=== PATIENT | male | born 1990 | race Caucasian/White ===

== ENCOUNTER → 2017-03-10 | Outpatient (CLI) | payer OTHER ==
--- NOTE | 2017-03-10 12:09 | XR ---
EXAMINATION TYPE: XR hand complete bilateral DATE OF EXAM: 03/10/2017 CLINICAL HISTORY: pain TECHNIQUE: Frontal, lateral and oblique images of the left hand are obtained. COMPARISON: None. FINDINGS: There is no acute fracture/dislocation evident. The joint spaces appear within normal limi ts. The overlying soft tissue appears unremarkable. IMPRESSION: There is no acute fracture or dislocation. ICD 10 NO FRACTURE, INITIAL EVALUATION EXAMINATION TYPE: XR hand complete bilateral DATE OF EXAM: 03/10/2017 CLINICAL HISTORY: pain TECHNIQUE: Frontal, lateral and oblique images of the right hand are obtained. COMPARISON: None. FINDINGS: There is no acute fracture/dislocation evident. The joint spaces appear within normal limi ts. The overlying soft tissue appears unremarkable. IMPRESSION: There is no acute fracture or dislocation ICD 10 NO FRACTURE, INITIAL EVALUATION
--- NOTE | 2017-03-10 12:10 | XR ---
EXAMINATION TYPE: XR wrist complete BILATERAL DATE OF EXAM: 03/10/2017 CLINICAL HISTORY: pain TECHNIQUE: Frontal, lateral and oblique images of the right wrist are obtained. COMPARISON: None. FINDINGS: There is no acute fracture/dislocation evident. The joint spaces appear within normal limits. The o verlying soft tissue appears unremarkable. IMPRESSION: There is no acute fracture or dislocation seen. ICD 10 NO FRACTURE, INITIAL EVALUATION EXAMINATION TYPE: XR wrist complete BILATERAL DATE OF EXAM: 03/10/2017 CLINICAL HISTORY: pain TECHNIQUE: Frontal, lateral and oblique images of the left wrist are obtained. COMPARISON: None. FINDINGS: There is no acute fracture/dislocation evident. The joint spaces appear within normal solis its. The overlying soft tissue appears unremarkable.
== END | disposition home or self-care (01) ==
LOC: RADXRMAIN 11:42
PROVIDERS: ATTEND Emergency Medicine
DX: S60.12 Contusion of index finger with damage to nail (principal); M65.839 Other synovitis and tenosynovitis, unspecified forearm

== ENCOUNTER 2018-03-31 14:36 | Inpatient (IN) | payer BC, MEDICAID ==
--- NOTE | 2018-03-31 14:43 | ED ---
Psych HPI - General Stated Complaint: Mental Health Time Seen by Provider: 03/31/18 14:40 Source: patient, EMS, RN notes reviewed Mode of arrival: EMS Limitations: no limitations - History of Present Illness Initial Comments: This is a 27-year-old male presents emergency from via EMS from [facility] for psychiatric evaluation. Patient went to [facility] today because he's been having worsening hallucinations. Patient states he has artery hallucinations and states that the voices are See Random Things. He Is Not Suicidal or Homicidal. He Does Have a History of Schizophrenia Non-Any Current Medications. He States He Uses Marijuana A Few Times in the past Nothing Recent No Other Illicit Drug Use. Denies Alcohol Abuse. - Related Data Home Medications Medication Instructions Recorded Confirmed Acetaminophen Tab [Tylenol Tab] 1,000 mg PO Q6HR PRN 03/31/18 03/31/18 Allergies Allergy/AdvReac Type Severity Reaction Status Date / Time No Known Allergies Allergy Verified 03/31/18 15:08 Review of Systems ROS Statement: Those systems with pertinent positive or pertinent negative responses have been documented in the HPI. ROS Other: All systems not noted in ROS Statement are negative. General Exam General appearance: alert, in no apparent distress Head exam: Present: atraumatic, normocephalic, normal inspection Eye exam: Present: normal appearance, PERRL, EOMI. Absent: scleral icterus, conjunctival injection, periorbital swelling ENT exam: Present: normal exam, mucous membranes moist Neck exam: Present: normal inspection, full ROM. Absent: tenderness, meningismus, lymphadenopathy Respiratory exam: Present: normal lung sounds bilaterally. Absent: respiratory distress, wheezes, rales, rhonchi, stridor Cardiovascular Exam: Present: regular rate, normal rhythm, normal heart sounds. Absent: systolic murmur, diastolic murmur, rubs, gallop, clicks GI/Abdominal exam: Present: soft, normal bowel sounds. Absent: distended, tenderness, guarding, rebound, rigid Skin exam: Present: warm, dry, intact, normal color. Absent: rash Course Vital Signs 03/31/18 14:42 Temperature 98.0 F Pulse Rate 72 Respiratory 20 Rate Blood Pressure 135/63 O2 Sat by Pulse 97 Oximetry Disposition Clinical Impression: Schizophrenia Disposition: ADMITTED IP TO THIS HOSP Condition: Stable Referrals: None,Stated [Primary Care Provider] - 1-2 days
[2018-03-31 16:59] LABS: Amphetamine Screen,Urine Not Detected (NotDetected); Barbiturate Screen,Urine Not Detected (NotDetected); Benzodiazepines Screen,Urine Not Detected (NotDetected); Cocaine Screen,Urine Not Detected (NotDetected); Methadone Screen, Urine Not Detected (NotDetected); Opiate Screen,Urine Not Detected (NotDetected); Oxycodone Screen, Urine Not Detected (NotDetected); Phencyclidine Screen,Urine Not Detected (NotDetected); Tricyclic Antidepressant,Urine Not Detected (NotDetected); Urn Cannabinoid Scrn Not Detected (NotDetected)
[2018-03-31] MEDS ORDERED: MAG HYDROX/AL HYDROX/SIMETH 30 ML CUP PO PRN (17:40)
[2018-03-31] MEDS ORDERED: MAGNESIUM HYDROXIDE 2,400 MG/10 ML CUP PO PRN (17:40)
[2018-03-31] MEDS ORDERED: ZIPRASIDONE 20 MG VIAL IM PRN (17:40)
[2018-03-31] MEDS ORDERED: ACETAMINOPHEN TAB 325 MG TAB PO PRN (17:40)
[2018-03-31 18:32] VITALS: BMI 20.5
--- NOTE | 2018-03-31 22:30 | P.MDCNMH ---
History of Present Illness H&P Date: 03/31/18 Chief Complaint: Medical management 27-year-old male with history of schizophrenia no other past medical history. Presented to the hospital due to suicidal ideation from [facility]. Medicine was consulted for medical management. I interviewed the patient he denies any medical complaints at this point. He denies any chest pain or trouble breathing denies any headaches dizziness lightheadedness, denies any nausea or vomiting denies any changes in his hearing or vision denies any abdominal pain he denies any changes in his bowel habits or urinary habits he denies any focal neurologic deficits she denies any GI bleeding he denies any coughing or shortness of breath. Review of Systems Pertinent positives as noted in HPI. All other systems were reviewed and are negative Past Medical History Past Medical History: No Reported History History of Any Multi-Drug Resistant Organisms: None Reported Past Surgical History: No Surgical Hx Reported Past Psychological History: Depression, Schizophrenia Smoking Status: Former smoker Past Alcohol Use History: Occasional Past Drug Use History: None Reported - Past Family History Family Additional Family Medical History / Comment(s): Hypertension runs in his mother' s side of the family. His mother with breast cancer Medications and Allergies Home Medications Medication Instructions Recorded Confirmed Type Acetaminophen Tab [Tylenol Tab] 1,000 mg PO Q6HR PRN 03/31/18 03/31/18 History Allergies Allergy/AdvReac Type Severity Reaction Status Date / Time No Known Allergies Allergy Verified 03/31/18 15:08 Physical Exam Vitals: Vital Signs Temp Pulse Pulse Resp BP BP Pulse Ox 03/31/18 18:18 98.6 F 03/31/18 18:06 98.6 F 75 16 120/76 03/31/18 17:20 98.6 F 73 18 123/56 99 03/31/18 14:42 98.0 F 72 20 135/63 97 Intake and Output 03/31/18 03/31/18 03/31/18 06:59 14:59 22:59 Other: Weight 61.235 kg 61.4 kg Constitutional: No acute distress, conversant, pleasant Eyes: Anicteric sclerae, moist conjunctiva, no lid-lag Pupils equal round reactive to light ENMT: NC/AT Oropharynx clear, no erythema, or exudates Neck: Supple, FROM, no masses, or JVD No carotid bruits No thyromegaly Lungs: Clear to auscultation Clear to percussion Normal respiratory effort, no accessory muscle use Cardiovascular: Heart regular in rate and rhythm, No murmurs, gallops, or rubs No peripheral edema Abdominal: Soft Nontender, no guarding, rebound or rigidity Abdomen moving with respiration Normoactive bowel sounds No hepatomegaly, No splenomegaly No palpable mass No abdominal wall hernia noted Skin: Normal temperature, tone, texture, turgor No induration No subcutaneous nodules No rash, lesions No ulcers Extremities: No digital cyanosis No clubbing Pedal pulses intact and symmetrical Radial pulses intact and symmetrical No calf tenderness Psychiatric: Alert and oriented to person, place and time Appropriate affect fair judgment Neuro Muscles Strength 5/5 in all 4 extremities Sensation to light touch grossly present throughout No focal sensory deficits Lymphatics: no palpable cervical or supraclavicular , or inguinal lymph nodes Cranial Nerve Examination - Cranial Nerves Cranial Nerve II- Optic: Intact Cranial Nerve III- Oculomotor: Intact Cranial Nerve IV- Trochlear: Intact Cranial Nerve V- Trigeminal: Intact Cranial Nerve - Abducens: Intact Cranial Nerve VII- Facial: Intact Cranial Nerve VIII- Auditory: Intact Cranial Nerve IX- Glossopharyngeal: Intact Cranial Nerve X- Vagus: Intact Cranial Nerve XI- Accessory: Intact Cranial Nerve XII- Hypoglossal: Intact Assessment and Plan Assessment: 27-year-old male with schizophrenia presented the hospital from [facility] to mental health due to suicidal ideation. #Suicidal ideation Management per psych Suicide precautions History of schizophrenia Management per psych Patient is low risk for DVT he is ambulatory Thank you for allowing us to participate in the care of this patient. We will follow peripherally. Do not hesitate to contact us with questions. Someone can be reached from the [facility] hospitalist group at all hours of the day at [phone].
[2018-04-01 08:30] LABS: ALT 28 U/L (21-72); AST 18 U/L (17-59); Albumin 4.4 g/dL (3.5-5.0); Alkaline Phosphatase 47 U/L (38-126); Anion Gap 9 mmol/L; Blood Urea Nitrogen 16 mg/dL (9-20); Calcium 9.9 mg/dL (8.4-10.2); Carbon Dioxide 26 mmol/L (22-30); Chloride 105 mmol/L (98-107); Glucose 91 mg/dL (74-99); Potassium 4.7 mmol/L (3.5-5.1); Sodium 140 mmol/L (137-145); Total Bilirubin 0.7 mg/dL (0.2-1.3); Total Protein 6.7 g/dL (6.3-8.2)
[2018-04-01 08:32] LABS: Basophils % (A) 0 %; Eosinophils # (A) 0.2 k/uL (0-0.7); Eosinophils % (A) 3 %; Lymphocytes # (A) 2.2 k/uL (1.0-4.8); Lymphocytes % (A) 32 %; MCH 27.1 pg (25.0-35.0); MCHC 32.5 g/dL (31.0-37.0); MCV 83.3 fL (80.0-100.0); Mean Platelet Volume 7.1; Monocytes # (A) 0.4 k/uL (0-1.0); Monocytes % (A) 6 %; Neutrophils # (A) 3.9 k/uL (1.3-7.7); Neutrophils % (A) 58 %; Platelet Count 260 k/uL (150-450); RBC 5.52 m/uL (4.30-5.90); RDW 13.2 % (11.5-15.5); WBC 6.8 k/uL (3.8-10.6)
[2018-04-01] MEDS: NICOTINE 14MG/24HR PATCH TRANSDERM SCH (08:35)
--- NOTE | 2018-04-01 16:26 | P.HP ---
Psychiatric H&P - . H&P Date: 04/01/18 History & Physical: Identification Data: The patient is a 27-year-old single male admitted voluntarily to the psychiatric unit. History of Present Illness: An intake counselor from [facility] called EMS to bring him to the ED following a walk-in assessment. According to the EPS assessment he was experiencing auditory hallucinations, had a hard time focusing and difficult time providing a coherent explanation as to his presentation. He talked about purchasing a handgun a year ago and having thoughts of shooting himself but sold a handgun about one week prior to admission. He had a difficult time explaining to reason for his presentation. He talked about having a difficulty finding focus or purpose in life. He feels aimless and cannot find motivation. He admitted that he bought a handgun and had thought about shooting himself. He stated that he sold a handgun about one week ago. He feels depressed and occasionally hopeless but denied feeling helpless or worthless. He admitted to feeling guilty and ruminated about his past errors but did not express clear delusions of guilt. He denied current suicidal thoughts or wishes. He has intermittent difficulties with sleep. He complained that he lacks motivation and energy and has not gone to work since last week. He feels tense and worries about minor matters. He has a decreased appetite and experiences heaviness in his limbs and fatigue. He was vague about psychotic symptoms. During our interview, he denied that he is experiencing auditory or visual hallucinations although he admitted that he had "heard voices" in the past. His answers to questions about other psychotic symptoms were difficult to understand. He was vague and noncommittal. However he appeared to understand when I explained experiences such as thought insertion , thought withdrawal and thought control. He admitted to having occasional feelings of paranoia but did not express clear paranoid delusional beliefs. Nursing staff reported that they have observed him internally preoccupied and mumbling to himself. He described a social use of alcohol and he denied use of drugs. He does not like to smoke marijuana because he becomes "more paranoid" with marijuana. Past Psychiatric History: He had 2 psychiatric admissions in 2014 and 2016 in [place]. He stated he was admitted for "hearing voices". He denied that he received aftercare services and has not received mental health services since he moved to [place] in 2016. His discharge diagnosis was schizophrenia. Substance Use History: He smoked marijuana regularly in high school. He denied use of other drugs to get high, help him sleep or change her mood. He was vague about involvement in substance abuse treatment. He talked about charges of possession when he was a teenager but did not give a clear or coherent response about whether he was referred her ordered for substance abuse treatment. Medical history: He denied a history of major medical problems. Family Psychiatric/Substance Use History: There is a history of alcohol use problems and mood disorder in his family. Social History: He was born and raised in [place]. His parents when he was 9 years old. His parents shared custody. He has 1 brother. He graduated from high school and received an associate degree from a [employer] in [place]. He moved from [place] to [place] in 2015. He lives with his aunt in [place] until he was able to find work and afford his own apartment. He has worked primarily unskilled jobs. 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 He stopped going to work and did not call his employer. He is single and has no children. Mental Status Exam: He presented as a thin neatly dressed and casually groomed 27-year-old male. He made eye contact and appeared to attend to the interview. He had no distinguishing features or prominent physical modalities. He had a flat facial expression. He was alert and oriented to person, place and time. He showed psychomotor retardation but no abnormal movements. His speech was spontaneous with decreased rate, rhythm and volume. He had no articulation difficulties. His affect was blunted and depressed. He denied current suicidal ideation or wishes. He denied homicidal ideation. He expressed feelings of hopelessness and helplessness. He ruminated about his lack of motivation and difficulties organizing his life. He may be experiencing ideas of reference but was difficult to understand his responses to questions about the experience. He appeared guarded but did not express clear paranoid ideation or delusional beliefs. He did not express magical ideation. His thinking was concrete, vague and circumstantial. He perseverated on his avolution. He did not express neologisms or blocking. He denied hallucinations and did not appear to be responding to internal stimuli during our examination. Global impression of intellect is average. He has limited awareness or understanding of his illness and need for treatment. Allergies Allergy/AdvReac Type Severity Reaction Status Date / Time No Known Allergies Allergy Verified 03/31/18 15:08 Vital Signs Temp 98.6 F 04/01/18 06:31 Pulse 56 L 04/01/18 06:31 Resp 16 04/01/18 06:31 BP 120/61 04/01/18 06:31 Pulse Ox 99 03/31/18 17:20 Intake & Output 03/31/18 04/01/18 04/01/18 18:59 06:59 18:59 Weight 61.4 kg Laboratory Last Values WBC 6.8 k/uL (3.8-10.6) 04/01/18 07:58 RBC 5.52 m/uL (4.30-5.90) 04/01/18 07:58 Hgb 15.0 gm/dL (13.0-17.5) 04/01/18 07:58 Hct 46.0 % (39.0-53.0) 04/01/18 07:58 MCV 83.3 fL (80.0-100.0) 04/01/18 07:58 MCH 27.1 pg (25.0-35.0) 04/01/18 07:58 MCHC 32.5 g/dL (31.0-37.0) 04/01/18 07:58 RDW 13.2 % (11.5-15.5) 04/01/18 07:58 Plt Count 260 k/uL (150-450) 04/01/18 07:58 Neutrophils % 58 % 04/01/18 07:58 Lymphocytes % 32 % 04/01/18 07:58 Monocytes % 6 % 04/01/18 07:58 Eosinophils % 3 % 04/01/18 07:58 Basophils % 0 % 04/01/18 07:58 Neutrophils # 3.9 k/uL (1.3-7.7) 04/01/18 07:58 Lymphocytes # 2.2 k/uL (1.0-4.8) 04/01/18 07:58 Monocytes # 0.4 k/uL (0-1.0) 04/01/18 07:58 Eosinophils # 0.2 k/uL (0-0.7) 04/01/18 07:58 Basophils # 0.0 k/uL (0-0.2) 04/01/18 07:58 Sodium 140 mmol/L (137-145) 04/01/18 07:58 Potassium 4.7 mmol/L (3.5-5.1) 04/01/18 07:58 Chloride 105 mmol/L (98-107) 04/01/18 07:58 Carbon Dioxide 26 mmol/L (22-30) 04/01/18 07:58 Anion Gap 9 mmol/L 04/01/18 07:58 BUN 16 mg/dL (9-20) 04/01/18 07:58 Creatinine 0.99 mg/dL (0.66-1.25) 04/01/18 07:58 Est GFR (CKD-EPI)AfAm >90 (>60 ml/min/1.73 sqM) 04/01/18 07:58 Est GFR (CKD-EPI)NonAf >90 (>60 ml/min/1.73 sqM) 04/01/18 07:58 Glucose 91 mg/dL (74-99) 04/01/18 07:58 Calcium 9.9 mg/dL (8.4-10.2) 04/01/18 07:58 Total Bilirubin 0.7 mg/dL (0.2-1.3) 04/01/18 07:58 AST 18 U/L (17-59) 04/01/18 07:58 ALT 28 U/L (21-72) 04/01/18 07:58 Alkaline Phosphatase 47 U/L (38-126) 04/01/18 07:58 Total Protein 6.7 g/dL (6.3-8.2) 04/01/18 07:58 Albumin 4.4 g/dL (3.5-5.0) 04/01/18 07:58 TSH 2.480 mIU/L (0.465-4.680) 04/01/18 07:58 Urine Opiates Screen Not Detected (NotDetected) 03/31/18 16:40 Ur Oxycodone Screen Not Detected (NotDetected) 03/31/18 16:40 Urine Methadone Screen Not Detected (NotDetected) 03/31/18 16:40 Ur Propoxyphene Screen Not Detected (NotDetected) 03/31/18 16:40 Ur Barbiturates Screen Not Detected (NotDetected) 03/31/18 16:40 U Tricyclic Antidepress Not Detected (NotDetected) 03/31/18 16:40 Ur Phencyclidine Scrn Not Detected (NotDetected) 03/31/18 16:40 Ur Amphetamines Screen Not Detected (NotDetected) 03/31/18 16:40 U Methamphetamines Scrn Not Detected (NotDetected) 03/31/18 16:40 U Benzodiazepines Scrn Not Detected (NotDetected) 03/31/18 16:40 Urine Cocaine Screen Not Detected (NotDetected) 03/31/18 16:40 U Marijuana (THC) Screen Not Detected (NotDetected) 03/31/18 16:40 04/01/18 11:53 04/01/18 12:07 04/01/18 16:23 Assessment and Plan Assessment: He is a 27-year-old male presented voluntarily to the psychiatric unit with complaints of lack of motivation, depression, thoughts of suicide and auditory hallucinations. He appeared to have a difficult time organizing his thoughts and explain the reason for the hospitalization. He is focused on his lack of motivation and difficulty organizing his life. He has a history of 2 prior psychiatric hospitalizations and a purported diagnosis of schizophrenia. I suspect that he has a schizophrenia that is dominated by such negative symptoms of apathy, blunted affect, social withdrawal, anhedonia and lethargy. Although he is denying auditory hallucinations nursing staff reports that he appears to be responding to internal stimuli. He should be treated inpatient basis with a combination of psychopharmacology and multimodal therapy. We discussed treatment with psychotropic medication. He would not consent to either antidepressant or an antipsychotic medication. (1) Suicidal ideation Current Visit: Yes Status: Acute Priority: Medium Code(s): R45.851 - SUICIDAL IDEATIONS SNOMED Code(s): 5992827 (2) Schizophrenia Current Visit: Yes Status: Chronic Priority: High Code(s): F20.9 - SCHIZOPHRENIA, UNSPECIFIED SNOMED Code(s): 63812577 Plan: Admitted to the psychiatric unit. Safety precautions. Consult medicine service for initial physical exam and medical history. Clinical staff to provide multidisciplinary assessments. Continue discussion regarding treatment with an antipsychotic medication. If he continues to refuse we may have to proceed with involuntary hospitalization. Encourage participation in therapeutic groups and activities. Evaluate clinical status response to treatment on a daily basis.
[2018-04-02] MEDS: NICOTINE 14MG/24HR PATCH TRANSDERM SCH (09:10)
--- NOTE | 2018-04-02 14:20 | P.PN ---
Progress Note - Text Progress Note Date: 04/02/18 He reports feeling amotivated. He reports feeling guilty about what he had done to himself and his dog. He claims to have left his dog at the curb side. He feels guilty about not being able to reach his dream. He states he is 27 year old and is still not . He reports his dream is to have a house, being and having children. He claims to have stopped going to his job two weeks ago due to feeling lonely and also feeling that he was not a good fit. He reports his main stressor currently is not having a source of income. He however stated he will be getting an inheritance in a month but states that won t last long. He reports feeling confused about his life in general. He states he cant figure out anything. He denies symptoms of ela. 27 year old male, appeared his stated age, in fair grooming and hygiene. He maintains good eye contact. No abnormal movements noted. His speech is normal rate, tone and volume. His mood is reported as angry and affect is reactive. His thought process is I am confused. He denies current auditory or visual hallucinations. He reports being paranoid and says that is the reason he is here. He explains his paranoia as being uncomfortable being the center of attraction. He denies current suicidal or homicidal ideations. He is alert and orientedX4. He has poor insight and judgement. He reports to have stopped taking his prescribed medications two years ago. He reports being diagnosed with schizophrenia. He reports being treated with lithium in the past and claims it has made him feel jittery. He is currently willing to take Zoloft for depression. Will start him on Zoloft 25MG po qday and the dose can be adjusted based on his tolerability and response. Explore the need for an antipsychotic based on his response with Zoloft. Encourage participation in groups. Monitor for symptoms Social work to explore about his discharge plans.
[2018-04-02 21:06] LABS: Appearance,Urine Clear (Clear); Bilirubin,Urine Negative (Negative); Blood,Urine Negative (Negative); Color,Urine Colorless; Glucose,Urine (UA) Negative (Negative); Ketones,Urine Negative (Negative); Leukocyte Esterase,Urine Negative (Negative); Nitrite,Urine Negative (Negative); Protein,Urine Negative (Negative); Specific Gravity,Urine 1.003 (1.001-1.035); Urobilinogen,Urine <2.0 mg/dL (<2.0)
[2018-04-03] MEDS: NICOTINE 14MG/24HR PATCH TRANSDERM SCH (09:13)
[2018-04-03] MEDS: SERTRALINE 25 MG TAB PO SCH (09:15)
--- NOTE | 2018-04-03 16:51 | P.PN ---
Progress Note - Text Progress Note Date: 04/03/18 Patient reports having a bit of headache and attention problems. He also reports feeling sad and hopeless , but is hopeful that he medication will help him with his depression. He says he is no longer feeling guilty. He reports good sleep and appetite. 27 year old male, appeared his stated age, in fair grooming and hygiene. He maintains good eye contact. No abnormal movements noted. His speech is normal rate, tone and volume. His mood is reported as ok and affect is constricted. He denies current auditory or visual hallucinations. He reports being paranoid . He denies current suicidal or homicidal ideations. He is alert and orientedX4. He has poor insight and judgment. Continue Zoloft 25MG po qday and the dose can be adjusted based on his tolerability and response. Explore the need for an antipsychotic based on his response with Zoloft. Encourage participation in groups. Monitor for symptoms Social work to explore about his discharge plans.
[2018-04-04] MEDS: NICOTINE 14MG/24HR PATCH TRANSDERM SCH (09:24)
[2018-04-04] MEDS: SERTRALINE 25 MG TAB PO SCH (09:25)
[2018-04-04] MEDS: ARIPiprazole 2 MG TAB PO SCH (12:33)
--- NOTE | 2018-04-04 15:26 | P.PN ---
Subjective Progress Note Date: 04/04/18 Principal diagnosis: Suicidal ideation, schizophrenia Reviewed the medical record, interviewed the patient and discuss his treatment and treatment plan during team meeting. He agreed to a trial of Zoloft with the covering psychiatrist over the weekend. He denied side effects to initial 25 mg dose. We again talked about treatment with antipsychotic. I explained the reasons for the recommendation and he agreed to a trial of Abilify. He has attended therapeutic groups and activities. Therapists report that he is attentive but his thinking is concrete, disorganized and paranoid. He is posed no management problem and required no medication for behavioral dyscontrol. Objective - Vital Signs Vital signs: Vital Signs Temp 97.8 F 04/04/18 06:12 Pulse 65 04/04/18 06:12 Resp 16 04/04/18 06:12 BP 109/58 04/04/18 06:12 Pulse Ox 98 04/03/18 06:33 Intake & Output 04/03/18 04/04/18 04/04/18 18:59 06:59 18:59 Weight 61.6 kg - Psychiatric Psychiatric Comment(s): He presented as a thin casually groomed and casually dressed young male who was pleasant on approach. He made eye contact and appeared to attend to the interview. He had no distinction features are prominent physical abnormalities he had a flat facial expression. He showed slight psychomotor retardation but no abnormal movements. His speech was nonspontaneous she decreased rate, rhythm and volume. His affect was blunted but stable and appropriate. He denied suicidal ideation or wishes. He denied homicidal ideation. He denied such depressive cognitions as hopelessness, helplessness and worthlessness. He did not express clear ideas reference, paranoid ideation or delusions. His thinking was concrete and associations appeared goal directed. At times he had difficulty expressing his thoughts. He denied hallucinations and did not appear to be responding to internal stimuli. - Labs CBC & Chem 7: 04/01/18 07:58 04/01/18 07:58 Assessment and Plan Assessment: He has prominent negative symptoms, periodic paranoia but no gross disorganization of thought, perception or belief. (1) Suicidal ideation Current Visit: Yes Status: Acute Priority: Medium Code(s): R45.851 - SUICIDAL IDEATIONS SNOMED Code(s): 4932468 (2) Schizophrenia Current Visit: Yes Status: Chronic Priority: High Code(s): F20.9 - SCHIZOPHRENIA, UNSPECIFIED SNOMED Code(s): 69056974 Plan: Continue inpatient hospitalization. Continue safety precautions. Continue Zoloft 25 mg per day and titrated according to clinical response and tolerance. Begin a trial of Abilify 2 mg by mouth daily and titrated according to clinical response and tolerance. Encourage continued participation in therapeutic groups and activities. Evaluate clinical status response to treatment on a daily basis.
[2018-04-05] MEDS: SERTRALINE 25 MG TAB PO SCH (08:19)
[2018-04-05] MEDS: NICOTINE 14MG/24HR PATCH TRANSDERM SCH (08:19)
[2018-04-05] MEDS: ARIPiprazole 2 MG TAB PO SCH (08:19)
--- NOTE | 2018-04-05 15:13 | P.PN ---
Subjective Progress Note Date: 04/05/18 Principal diagnosis: Suicidal ideation, schizophrenia I reviewed the medical record, interviewed the patient and discussed his treatment and treatment plan during team meeting. He denied side effects to the initial 2 doses of Abilify 2 mg. He complained of feeling anxious about "being in the hospital" but denied other problems or concerns. He denied experiencing ideas of reference, auditory hallucinations or paranoia. Objective - Vital Signs Vital signs: Vital Signs Temp 98.1 F 04/05/18 05:53 Pulse 66 04/05/18 05:51 Resp 18 04/05/18 05:51 BP 107/62 04/05/18 05:51 Pulse Ox 98 04/03/18 06:33 - Psychiatric Psychiatric Comment(s): He presented as a thin lady dressed and groomed 19-year-old male who was pleasant on approach. She made eye contact and attended to the interview. He had a blunted but bright facial expression. He smiled intermittently during the interview. He showed slight psychomotor retardation but no abnormal movements. His speech was spontaneous with slight decrease in rate, volume and rhythm. His affect was blunted but stable and appropriate. He denied suicidal ideation or wishes. He denied feeling hopeless, helpless or worthless. He denied ideas reference, paranoid ideation or delusional thoughts. His thinking was concrete but his associations were coherent and logical. He did not appear to be responding to internal stimuli. - Labs CBC & Chem 7: 04/01/18 07:58 04/01/18 07:58 Assessment and Plan Assessment: Overall, he is showing more effective expression than on admission. There is no evidence of psychotic symptoms. He is denying suicidal ideation, intent or plan. He is demonstrated no disruptive or self-harm behavior. (1) Suicidal ideation Current Visit: Yes Status: Resolved Priority: Medium Code(s): R45.851 - SUICIDAL IDEATIONS SNOMED Code(s): 4565487 (2) Schizophrenia Current Visit: Yes Status: Chronic Priority: High Code(s): F20.9 - SCHIZOPHRENIA, UNSPECIFIED SNOMED Code(s): 45916662 Plan: Continue inpatient hospitalization. Continue safety precautions. Continue Zoloft 25 mg per day and titrated according to clinical response and tolerance. Continue Abilify 2 mg by mouth daily and titrated according to clinical response and tolerance. Encourage continued participation in therapeutic groups and activities. Evaluate clinical status response to treatment on a daily basis.
[2018-04-06] MEDS: ARIPiprazole 2 MG TAB PO SCH (08:45)
[2018-04-06] MEDS: NICOTINE 14MG/24HR PATCH TRANSDERM SCH (08:45)
[2018-04-06] MEDS: SERTRALINE 25 MG TAB PO SCH (08:45)
--- NOTE | 2018-04-06 14:02 | P.PN ---
Subjective Progress Note Date: 04/06/18 Principal diagnosis: Suicidal ideation, schizophrenia I reviewed the medical record and interviewed the patient. He requested discharged stating that he is feeling much better. He denied feeling depressed or having thoughts of or suicide. He feels less confused and better able concentrate and attend. He denied side effects to his medications-Zoloft and Abilify. He denied psychotic symptoms such as auditory, visual or tactile disturbances, ideas reference, thought insertion etc. He plans to return to his apartment at least for the month of April and agreed outpatient mental health services. I explained that we have a family meeting scheduled tomorrow and the earlier this that we couldn't discharge him up after the family meeting. Objective - Vital Signs Vital signs: Vital Signs Temp 98.0 F 04/06/18 06:35 Pulse 60 04/06/18 06:35 Resp 12 04/06/18 06:35 BP 112/71 04/06/18 06:35 Pulse Ox 98 04/03/18 06:33 - Psychiatric Psychiatric Comment(s): He presented as a casually groomed and dressed male who was pleasant on approach. He maintained eye contact and attended to the interview. He had a blunted but bright facial expression. He showed no abnormality of psychomotor activity. His speech was spontaneous with normal rate, rhythm and volume. His affect was blunted but stable and appropriate. He smiled intermittently during the interview. He denied suicidal ideation, wishes or homicidal ideation. He denied feeling hopeless, helpless or worthless. He denied experiencing ideas of reference, paranoid ideation or delusional thoughts. His thinking was concrete but his associations were coherent and logical. He denied hallucinations and did not appear to responding to internal stimuli. - Labs CBC & Chem 7: 04/01/18 07:58 04/01/18 07:58 Assessment and Plan (1) Suicidal ideation Current Visit: Yes Status: Resolved Priority: Medium Code(s): R45.851 - SUICIDAL IDEATIONS SNOMED Code(s): 7422026 (2) Schizophrenia Current Visit: Yes Status: Chronic Priority: High Code(s): F20.9 - SCHIZOPHRENIA, UNSPECIFIED SNOMED Code(s): 92721015 Plan: Continue inpatient hospitalization. Continue safety precautions. Continue Zoloft 25 mg per day and Abilify 2 mg by mouth daily. Discharge on 04/07/2018 after the family meeting. Encourage continued participation in therapeutic groups and activities. Evaluate clinical status response to treatment on a daily basis.
[2018-04-07 06:41] VITALS: BP 127/61; PULSE 61; RESP 18; TEMP 97.7
[2018-04-07] MEDS: NICOTINE 14MG/24HR PATCH TRANSDERM SCH (08:26)
[2018-04-07] MEDS: SERTRALINE 25 MG TAB PO SCH (08:26)
[2018-04-07] MEDS: ARIPiprazole 2 MG TAB PO SCH (08:26)
--- NOTE | 2018-04-07 15:51 | P.DS ---
Providers Date of admission: 03/31/18 17:03 Attending physician: Irvin Mulligan MD Consults: 03/31/18 17:40 Consult Physician Routine Consulting Provider: [facility] Consult Reason/Comments: H & P and medical care Do you want consulting provider notified?: Yes Primary care physician: Stated None - Discharge Diagnosis(es) (1) Suicidal ideation Status: Resolved Priority: Medium (2) Schizophrenia Status: Chronic Priority: High Hospital Course: The patient is a 27-year-old single male admitted voluntarily to the psychiatric unit. He has a history of a schizophrenia and presented to the ED as a walk-in. He complained of auditory hallucinations and difficulty concentrating. In the emergency room he a difficult time organizing his thoughts and providing a coherent explanation of his presentation. He talked about suicidal ideation buying a gun, having thoughts of shooting himself and selling the handgun one week prior to admission. We admitted him to the psychiatric unit under care of this radio news writer. We provided a biopsychosocial assessment. The cognos consultant informatics application analyst completed initial physical exam and medical history. The patient had no major medical illnesses. We discussed treatment options and he initially agreed to a trial of sertraline 25 mg per day for treatment of depressive symptoms and Abilify 2 mg per day. His overall mood and affect improved significantly after we increased dose of Abilify to 5 mg daily. He posed no management problem and and had no episodes of behavioral dyscontrol. Although he frequently denied experiencing auditory hallucinations he was observed frequently talking to himself as though he were responding to internal stimuli. At time of discharge she presented as a casually dressed and casually groomed young male who was pleasant on approach. He made eye contact and attended to interview. He had no distinguishing features or prominent physical abnormalities. He had a blunted but bright facial expression. His speech was spontaneous with slight decrease in rate and rhythm. His affect was blunted but stable and appropriate. He denied suicidal ideation or wishes. He denied homicidal ideation. He denied feeling hopeless, helpless or worthless. He did not express ideas reference, paranoid ideation or delusional thoughts. His thinking was concrete but his associations were coherent and logical. He denied hallucinations and did not appear to responding to internal stimuli. Patient Condition at Discharge: Stable Plan - Discharge Summary Discharge Rx Participant: No New Discharge Prescriptions: New ARIPiprazole [Abilify] 5 mg PO DAILY #30 tab Nicotine Polacrilex [Quit 2] 2 mg BUCCAL Q4H #14 lozenge Sertraline [Zoloft] 25 mg PO DAILY #30 tab Discontinued Acetaminophen Tab [Tylenol Tab] 1,000 mg PO Q6HR PRN PRN Reason: Pain Discharge Medication List ARIPiprazole [Abilify] 5 mg PO DAILY #30 tab 04/07/18 [Rx] Nicotine Polacrilex [Quit 2] 2 mg BUCCAL Q4H #14 lozenge 04/07/18 [Rx] Sertraline [Zoloft] 25 mg PO DAILY #30 tab 04/07/18 [Rx] Follow up Appointment(s)/Referral(s[facility] - 04/13/18 2:00 pm (Lee Rawls ) None,Stated [Primary Care Provider] - 1-2 days Patient Instructions/Handouts: Schizophrenia (DC), Suicide Prevention for Adults (DC) Activity/Diet/Wound Care/Special Instructions: Remove all weapons & firearms from the home; Refrain from street drugs and alcohol; Activity and diet as tolerated; Follow-up with the [facility], [address] [place] [id number], in 1-2 days for medical needs, as you have no PCP; Keep all scheduled follow-up appointments for continuity of care; Any problems call the Crisis Line at or 053 in case of emergency or go to the nearest ER for a psychiatric evaluation. For prescription refills, contact you PCP or your aftercare Psychiatrist for psychiatric meds. Discharge Disposition: HOME SELF-CARE
== END 2018-04-07 13:43 | disposition home or self-care (01) | DRG 885 ==
LOC: EC 14:36 → 3MHU 17:03
PROVIDERS: ADMIT Psychiatry & Neurology Psychiatry; ATTEND Psychiatry & Neurology Psychiatry
DX: F20.9 Schizophrenia, unspecified (principal); R45.851 Suicidal ideations; F32.9 Major depressive disorder, single episode, unspecified
CPT/HCPCS: 80053; 80306; 81003; 82075; 84443; 85025; 99285

== ENCOUNTER → 2024-02-14 | Outpatient (CLI) | payer OTHER ==
--- NOTE | 2024-02-14 13:03 | CA ---
Exercise Stress Test Report Name: Harpreet Calle Exam Date: 02/14/2024 09:24 Exam Location: [place] Stress Ht (in): 68 Wt (lb): 145 BSA: 1.78 Ordering Phys: Naveen Pearce MD Referring Phys: Naveen Pearce MD Technologist: Calvin Cornejo Age: 33 Gender: M : 1990 Procedure CPT: Indications: Z02.1 ENCOUNTER FOR PRE-EMPLOYMENT EXAMINATION ICD-10 Codes: Patient History: Medications: NONE Meds past 24 hrs: NONE Pretest Chest Pain: NONE STRESS TEST Vinicio Protocol Exercise Duration (min:sec): 13:[address] Depressions (mm): 0 Angina Score: 0 Mclain Score: 13.8 Resting HR (bpm): 62 Peak HR (bpm): 181 Resting BP (mmHg): 146 / 87 Peak BP (mmHg): 215 / 111 MPHR: 186 Target HR: 158 % MPHR: 97 METS: 14.9 Total Dose: Peak Dose: Atropine: NA Double Product: 69804 BP Response: Stress Termination: Reached target heart rate Stress Symptoms: NO SYMPTOMS Stress Summary: The patient's target heart rate was achieved ECG ANALYSIS Resting ECG: Sinus rhythm. Normal conduction. No arrhythmias. Normal repolarization. Stress ECG: No ECG evidence of ischemia with exercise. CONCLUSIONS Patient falls into low-risk group (DTS >= +5). This associates the patient with an annual CV mortality <= 0.5%. 1. Excellent exercise tolerance 2. Normal electrocardiographic response to exercise with no evidence of exercise induced ischemia Dr. Juan David Crespo MD (Electronically Signed) Final Date: 14 Feb 2024 13:02
== END | disposition home or self-care (01) ==
LOC: RADNMMAIN 08:27
PROVIDERS: ATTEND Family Medicine
DX: Z02.1 Encounter for pre-employment examination (principal)
CPT/HCPCS: 93017

== ENCOUNTER 2024-06-24 01:15 | Inpatient (IN) | payer OTHER ==
--- NOTE | 2024-06-24 02:42 | ED ---
General Adult HPI <Hilario Casillas - Last Filed: 06/24/24 13:24> - General Source: patient Mode of arrival: ambulatory Limitations: no limitations <Dora Mcleod - Last Filed: 06/30/24 17:10> - General Chief complaint: Psychiatric Symptoms Stated complaint: Mental Health Time Seen by Provider: 06/24/24 02:25 - History of Present Illness Initial comments: Patient is a 33-year-old male with past medical history of schizophrenia presenting today for hallucinations. Patient states that he has begun exper iencing visual hallucinations and feels like they are escalating "like before". Patient states he has been hospitalized for this previously. Is not currently taking any medications. Denies any auditory hallucinations, HI or SI. Denies illicit drug use or alcohol use. Also noted left-sided chest pain that occurred briefly yesterday described as sharp and then moved to the right side. None currently. Denies any associate difficulty breathing. No history ACS. Patient is a current smoker. (Dora Mcleod) - Related Data Previous Rx's Medication Instructions Recorded ARIPiprazole [Abilify] 5 mg PO DAILY 14 Days #14 tab 06/28/24 Nicotine 14Mg/24Hr Patch [Habitrol] 1 patch TRANSDERM DAILY 14 Days 06/28/24 #14 patch Sertraline [Zoloft] 25 mg PO HS 14 Days #14 tab 06/28/24 Allergies Allergy/AdvReac Type Severity Reaction Status Date / Time No Known Allergies Allergy Verified 06/24/24 18:19 Review of Systems ROS Other: All systems not noted in ROS Statement are negative. <Hilario Casillas - Last Filed: 06/24/24 13:24> ROS Other: All systems not noted in ROS Statement are negative. <Dora Mcleod - Last Filed: 06/30/24 17:10> ROS Statement: Those systems with pertinent positive or pertinent negative responses have been documented in the HPI. Past Medical History Past Medical History: No Reported History History of Any Multi-Drug Resistant Organisms: None Reported Past Surgical History: No Surgical Hx Reported Past Psychological History: Depression, Schizophrenia Smoking Status: Current every day smoker Past Alcohol Use History: Occasional Past Drug Use History: None Reported - Past Family History Family Additional Family Medical History / Comment(s): Hypertension runs in his mother's side of the family. His mother with breast cancer <Dora Mcleod - Last Filed: 06/30/24 17:10> General Exam Limitations: no limitations <Dora Mcleod - Last Filed: 06/30/24 17:10> - General Exam Comments Initial Comments: PE: CONSTITUTIONAL: No apparent distress, well appearing SKIN: Warm, dry, no jaundice, hives or petechiae EYES: Pupils are equally round, extraocular movements intact without nystagmus, clear conjunctiva, non-icteric sclera HENT: Normocephalic, atraumatic, moist mucus membranes, oropharynx clear without exudates NECK: , Full range of motion, normal appearance, no masses or thyromegaly PULMONARY: Clear to auscultation without wheezes, rhonchi, or rales, normal excursion, no accessory muscle use and no stridor CARDIOVASCULAR: Regular rate, rhythm, normal S1 and S2. No appreciated murmurs, rubs or gallops. Strong radial pulses with intact distal perfusion. No lower extremity edema, no chest wall TTP GASTROINTESTINAL: Soft, non-tender, non-distended, no palpable masses, no rebound or guarding. No hepatosplenomegaly MUSCULOSKELETAL: Extremities have no gross deformity, no edema, redness, or swelling. No calf swelling ot TTP. NEUROLOGIC:_a/o x 3, GCS 15, normal mentation and speech. Moves all extremities x 4 without motor or sensory deficit PSYCHIATRIC:_normal mood and somewhat flat affect, makes poor eye contact, denies SI/HI, endorsing visual hallucinations, speech is clear but tangential, calm and cooperative (Dora Mcleod) Course Vital Signs 06/24/24 06/24/24 01:21 14:56 Temperature 97.8 F Pulse Rate 73 73 Respiratory 18 18 Rate Blood Pressure 141/107 126/74 O2 Sat by Pulse 97 98 Oximetry EKG Findings - EKG Comments: EKG Findings:: Sinus rhythm, rate 72 bpm, SC interval shortened, 112 ms no delta waves present, QRS duration 93 ms, QT/QTc 383/407 ms, normal axis, no ST elevations or depressions, no arrhythmia <Dora Mcleod - Last Filed: 06/30/24 17:10> Medical Decision Making - Lab Data Result diagrams: 06/24/24 03:00 06/24/24 03:00 <Hilario Casillas - Last Filed: 06/24/24 13:24> - Lab Data Result diagrams: 06/24/24 03:00 06/24/24 03:00 <Dora Mcleod - Last Filed: 06/30/24 17:10> - Medical Decision Making Case was discussed with mental health worker with plans for admission. Patient did sign himself in and will be admitted. (Hilario Casillas) Was pt. sent in by a medical professional or institution (, PA, DIRECTORY ASSISTANCE OPERATOR, urgent care, hospital, or intermediate...) When possible be specific @ -No Did you speak to anyone other than the patient for history (EMS, parent, family, police, friend...)? What history was obtained from this source @ -No Did you review nursing and triage notes (agree or disagree)? Why? @ -I reviewed and agree with nursing and triage notes Were old charts reviewed (outside hosp., previous admission, EMS record, old EKG, old radiological studies, urgent care reports/EKG's, intermediate records)? Report findings @ Patient previously admitted on 03/31/2018, voluntarily to the psychiatric unit at that time had presented for complaints of auditory hallucinations and difficulty concentrating. Was noted to have a history of schizophrenia. Differential Diagnosis (chest pain, altered mental status, abdominal pain women, abdominal pain men, vaginal bleeding, weakness, fever, dyspnea, syncope, head ache, dizziness, GI bleed, back pain, seizure, CVA, palpatations, mental health, musculoskeletal)? @ -Differential diagnose remains broad however top considerations include: Depression, anxiety, bipolar, psychosis, schizophrenia, borderline personality, situational depression, adjustment disorder, behavioral disorder, brain tumor, malingering, substance abuse, encephalopathy, medication reaction, dementia, hypothyroidism, degenerative neurologic disorder, lupus.... This is not meant to be all-inclusive list In regards to patient's chest pain, differential diagnosis remains broad however top considerations include costochondritis, anxiety, ACS, pericarditis, esophageal spasm, this is not all inclusive list EKG interpreted by me (3pts min.). @ -As above X-rays interpreted by me (1pt min.). @ CXR shows no cardiomegaly, consolidations or pleural effusions CT interpreted by me (1pt min.). @ -None done U/S interpreted by me (1pt. min.). @ -None done What testing was considered but not performed or refused? (CT, X-rays, U/S, labs)? Why? @ -None What meds were considered but not given or refused? Why? @ -None Did you discuss the management of the patient with other professionals (arina blackman i.e. , PA, DIRECTORY ASSISTANCE OPERATOR, lab, RT, psych nurse, social studies department chair, weapons electrical engineering officer, teacher, property and supply officer, renal case manager)? Give summary @ -No Was smoking cessation discussed for >3mins.? @ -No Was critical care preformed (if so, how long)? @ -No Were there social determinants of health that impacted care today? How? (Homelessness, low income, unemployed, alcoholism, drug addiction, transportation, low edu. Level, literacy, decrease access to med. care, prison, rehab)? @ -No Was there de-escalation of care discussed even if they declined (Discuss DNR or withdrawal of care, Hospice)? @ -No What co-morbidities impacted this encounter? (DM, HTN, Smoking, COPD, CAD, Cancer, CVA, ARF, Chemo, Hep., AIDS, mental health diagnosis, sleep apnea, morbid obesity)? @ -None Was patient admitted / discharged? Hospital course, mention meds given and route, prescriptions, significant lab abnormalities, going to OR and other pertinent info. @ -Hospital course Patient is a 33-year-old gentleman past medical history of schizophrenia presenting today for visual hallucinations. On my assessment, awake alert calm and cooperative. He does not appear to be responding to internal stimuli however thoughts are tangential. Denies SI and HI. No focal neurologic deficits. During exam patient states that yesterday he did have left-sided chest pain that spontaneously resolved and was described as sharp. In addition to mental health evaluation, ordered EKG, chest x-ray, troponin, basic labs, toradol. Single troponin ordered as chest pain occurred yesterday and resolved spontaneously, so would expect elevated troponin at this point if 2/2 ACS. Labs and imaging reviewed. Grossly within normal limits. Abnormal values not concerning for acute pathology related to presenting complaint. Patient did begin to endorse agitation to RN. RN requested medications to help with agitation. Zyprexa and ativan ordered. Pt medically cleared for behavioral health evaluation. Pt signed out to Dr. Casillas pending EPS evaluation. Undiagnosed new problem with uncertain prognosis? @ -No Drug Therapy requiring intensive monitoring for toxicity (Heparin, Nitro, Insulin, Cardizem)? @ -No Were any procedures done? @ -No Diagnosis/symptom? @ -Hallucinations, chest pain Acute, or Chronic, or Acute on Chronic? @ -acute Uncomplicated (without systemic symptoms) or Complicated (systemic symptoms)? @ complicated Side effects of treatment? @ -No Exacerbation, Progression, or Severe Exacerbation? @ -No Poses a threat to life or bodily function? How? (Chest pain, [place], [place], pneumonia, PE, COPD, DKA, ARF, appy, cholecystitis, CVA, Diverticulitis, Homicidal, Suicidal, threat to staff... and all critical care pts) @ -Potentially, if left untreated (Dora Mcleod) - Lab Data Lab Results 06/24/24 06/24/24 06/24/24 Range/Units 03:00 03:00 03:00 WBC 11.6 H (3.8-10.6) k/uL RBC 5.66 (4.30-5.90) m/uL Hgb 15.7 (13.0-17.5) gm/dL Hct 46.2 (39.0-53.0) % MCV 81.7 (80.0-100.0) fL MCH 27.7 (25.0-35.0) pg MCHC 33.9 (31.0-37.0) g/dL RDW 13.0 (11.5-15.5) % Plt Count 321 (150-450) k/uL MPV 8.0 Neutrophils % 62 % Lymphocytes % 29 % Monocytes % 5 % Eosinophils % 1 % Basophils % 0 % Neutrophils # 7.2 (1.3-7.7) k/uL Lymphocytes # 3.4 (1.0-4.8) k/uL Monocytes # 0.6 (0-1.0) k/uL Eosinophils # 0.1 (0-0.7) k/uL Basophils # 0.1 (0-0.2) k/uL PT 10.5 (10.0-12.5) sec INR 0.9 (<1.2) APTT 23.2 (22.0-30.0) sec Sodium 140 (137-145) mmol/L Potassium 4.0 (3.5-5.1) mmol/L Chloride 105 (98-107) mmol/L Carbon Dioxide 26 (22-30) mmol/L Anion Gap 9 mmol/L BUN 11 (9-20) mg/dL Creatinine 0.93 (0.66-1.25) mg/dL Est GFR (CKD-EPI)AfAm >90 (>60 ml/min/1.73 sqM) Est GFR (CKD-EPI)NonAf >90 (>60 ml/min/1.73 sqM) Glucose 108 H (74-99) mg/dL Estimated Ave Glu mg/dL mg/dL Hemoglobin A1c (<=6.0) % Calcium 10.0 (8.4-10.2) mg/dL Total Bilirubin 0.3 (0.2-1.3) mg/dL Conjugated Bilirubin (0.0-0.3) mg/dL Unconjugated Bilirubin (0.0-1.1) mg/dL Delta Bilirubin (0.0-0.2) mg/dL AST 20 (17-59) U/L ALT 18 (4-49) U/L Alkaline Phosphatase 55 (38-126) U/L Troponin I (0.000-0.034) ng/mL Total Protein 7.0 (6.3-8.2) g/dL Albumin 4.5 (3.5-5.0) g/dL Triglycerides (0.00-149.00) mg/dL Cholesterol (0.00-200.00) mg/dL LDL Cholesterol, Calc (0.0-131.0) mg/dL VLDL Cholesterol, Calc (5.00-40.00) mg/dL HDL Cholesterol (40.00-60.00) mg/dL Cholesterol/HDL Ratio Ratio Lipase 238 (23-300) U/L TSH (0.465-4.680) mIU/L Urine Color Urine Appearance (Clear) Urine pH (5.0-8.0) Ur Specific [place] (1.001-1.035) Urine Protein (Negative) Urine Glucose (UA) (Negative) Urine Ketones (Negative) Urine Blood (Negative) Urine Nitrite (Negative) Urine Bilirubin (Negative) Urine Urobilinogen (<2.0) mg/dL Ur Leukocyte Esterase (Negative) Urine Opiates Screen (NotDetected) Ur Oxycodone Screen (NotDetected) Urine Methadone Screen (NotDetected) Ur Barbiturates Screen (NotDetected) U Tricyclic Antidepress (NotDetected) Ur Phencyclidine Scrn (NotDetected) Ur Amphetamines Screen (NotDetected) U Methamphetamines Scrn (NotDetected) U Benzodiazepines Scrn (NotDetected) Urine Cocaine Screen (NotDetected) U Marijuana (THC) Screen (NotDetected) SARS-CoV-2 (PCR) (Not Detectd) 06/24/24 06/24/24 06/24/24 Range/Units 03:00 03:00 03:00 WBC (3.8-10.6) k/uL RBC (4.30-5.90) m/uL Hgb (13.0-17.5) gm/dL Hct (39.0-53.0) % MCV (80.0-100.0) fL MCH (25.0-35.0) pg MCHC (31.0-37.0) g/dL RDW (11.5-15.5) % Plt Count (150-450) k/uL MPV Neutrophils % % Lymphocytes % % Monocytes % % Eosinophils % % Basophils % % Neutrophils # (1.3-7.7) k/uL Lymphocytes # (1.0-4.8) k/uL Monocytes # (0-1.0) k/uL Eosinophils # (0-0.7) k/uL Basophils # (0-0.2) k/uL PT (10.0-12.5) sec INR (<1.2) APTT (22.0-30.0) sec Sodium (137-145) mmol/L Potassium (3.5-5.1) mmol/L Chloride (98-107) mmol/L Carbon Dioxide (22-30) mmol/L Anion Gap mmol/L BUN (9-20) mg/dL Creatinine (0.66-1.25) mg/dL Est GFR (CKD-EPI)AfAm (>60 ml/min/1.73 sqM) Est GFR (CKD-EPI)NonAf (>60 ml/min/1.73 sqM) Glucose (74-99) mg/dL Estimated Ave Glu mg/dL 105 mg/dL Hemoglobin A1c 5.3 (<=6.0) % Calcium (8.4-10.2) mg/dL Total Bilirubin 0.4 (0.2-1.3) mg/dL Conjugated Bilirubin 0.0 (0.0-0.3) mg/dL Unconjugated Bilirubin 0.2 (0.0-1.1) mg/dL Delta Bilirubin 0.2 (0.0-0.2) mg/dL AST 22 (17-59) U/L ALT 18 (4-49) U/L Alkaline Phosphatase 62 (38-126) U/L Troponin I <0.012 (0.000-0.034) ng/mL Total Protein 7.0 (6.3-8.2) g/dL Albumin 4.4 (3.5-5.0) g/dL Triglycerides 111.00 (0.00-149.00) mg/dL Cholesterol 154.00 (0.00-200.00) mg/dL LDL Cholesterol, Calc 77.2 (0.0-131.0) mg/dL VLDL Cholesterol, Calc 22.20 (5.00-40.00) mg/dL HDL Cholesterol 54.60 (40.00-60.00) mg/dL Cholesterol/HDL Ratio 2.82 Ratio Lipase (23-300) U/L TSH 2.950 (0.465-4.680) mIU/L Urine Color Urine Appearance (Clear) Urine pH (5.0-8.0) Ur Specific [place] (1.001-1.035) Urine Protein (Negative) Urine Glucose (UA) (Negative) Urine Ketones (Negative) Urine Blood (Negative) Urine Nitrite (Negative) Urine Bilirubin (Negative) Urine Urobilinogen (<2.0) mg/dL Ur Leukocyte Esterase (Negative) Urine Opiates Screen (NotDetected) Ur Oxycodone Screen (NotDetected) Urine Methadone Screen (NotDetected) Ur Barbiturates Screen (NotDetected) U Tricyclic Antidepress (NotDetected) Ur Phencyclidine Scrn (NotDetected) Ur Amphetamines Screen (NotDetected) U Methamphetamines Scrn (NotDetected) U Benzodiazepines Scrn (NotDetected) Urine Cocaine Screen (NotDetected) U Marijuana (THC) Screen (NotDetected) SARS-CoV-2 (PCR) (Not Detectd) 09/06/24/24 06/24/24 Range/Units 12:15 12:15 13:40 WBC (3.8-10.6) k/uL RBC (4.30-5.90) m/uL Hgb (13.0-17.5) gm/dL Hct (39.0-53.0) % MCV (80.0-100.0) fL MCH (25.0-35.0) pg MCHC (31.0-37.0) g/dL RDW (11.5-15.5) % Plt Count (150-450) k/uL MPV Neutrophils % % Lymphocytes % % Monocytes % % Eosinophils % % Basophils % % Neutrophils # (1.3-7.7) k/uL Lymphocytes # (1.0-4.8) k/uL Monocytes # (0-1.0) k/uL Eosinophils # (0-0.7) k/uL Basophils # (0-0.2) k/uL PT (10.0-12.5) sec INR (<1.2) APTT (22.0-30.0) sec Sodium (137-145) mmol/L Potassium (3.5-5.1) mmol/L Chloride (98-107) mmol/L Carbon Dioxide (22-30) mmol/L Anion Gap mmol/L BUN (9-20) mg/dL Creatinine (0.66-1.25) mg/dL Est GFR (CKD-EPI)AfAm (>60 ml/min/1.73 sqM) Est GFR (CKD-EPI)NonAf (>60 ml/min/1.73 sqM) Glucose (74-99) mg/dL Estimated Ave Glu mg/dL mg/dL Hemoglobin A1c (<=6.0) % Calcium (8.4-10.2) mg/dL Total Bilirubin (0.2-1.3) mg/dL Conjugated Bilirubin (0.0-0.3) mg/dL Unconjugated Bilirubin (0.0-1.1) mg/dL Delta Bilirubin (0.0-0.2) mg/dL AST (17-59) U/L ALT (4-49) U/L Alkaline Phosphatase (38-126) U/L Troponin I (0.000-0.034) ng/mL Total Protein (6.3-8.2) g/dL Albumin (3.5-5.0) g/dL Triglycerides (0.00-149.00) mg/dL Cholesterol (0.00-200.00) mg/dL LDL Cholesterol, Calc (0.0-131.0) mg/dL VLDL Cholesterol, Calc (5.00-40.00) mg/dL HDL Cholesterol (40.00-60.00) mg/dL Cholesterol/HDL Ratio Ratio Lipase (23-300) U/L TSH (0.465-4.680) mIU/L Urine Color Light Yellow Urine Appearance Clear (Clear) Urine pH 5.5 (5.0-8.0) Ur Specific [place] 1.019 (1.001-1.035) Urine Protein Negative (Negative) Urine Glucose (UA) Negative (Negative) Urine Ketones Negative (Negative) Urine Blood Negative (Negative) Urine Nitrite Negative (Negative) Urine Bilirubin Negative (Negative) Urine Urobilinogen <2.0 (<2.0) mg/dL Ur Leukocyte Esterase Negative (Negative) Urine Opiates Screen Not Detected (NotDetected) Ur Oxycodone Screen Not Detected (NotDetected) Urine Methadone Screen Not Detected (NotDetected) Ur Barbiturates Screen Not Detected (NotDetected) U Tricyclic Antidepress Not Detected (NotDetected) Ur Phencyclidine Scrn Not Detected (NotDetected) Ur Amphetamines Screen Not Detected (NotDetected) U Methamphetamines Scrn Not Detected (NotDetected) U Benzodiazepines Scrn Detected H (NotDetected) Urine Cocaine Screen Not Detected (NotDetected) U Marijuana (THC) Screen Not Detected (NotDetected) SARS-CoV-2 (PCR) Not Detected (Not Detectd) Disposition Is patient prescribed a controlled substance at d/c from ED?: No Time of Disposition: 13:24 <Hilario Casillas - Last Filed: 06/24/24 13:24> <Dora Mcleod - Last Filed: 06/30/24 17:10> Clinical Impression: Schizophrenia, Chest pain Disposition: TRANSFER TO PSYCH HOSP/UNIT Condition: Stable
[2024-06-24 03:30] LABS: Basophils # (A) 0.1 k/uL (0-0.2); Basophils % (A) 0 %; Eosinophils # (A) 0.1 k/uL (0-0.7); Eosinophils % (A) 1 %; HCT 46.2 % (39.0-53.0); HGB 15.7 gm/dL (13.0-17.5); Lymphocytes # (A) 3.4 k/uL (1.0-4.8); Lymphocytes % (A) 29 %; MCH 27.7 pg (25.0-35.0); MCHC 33.9 g/dL (31.0-37.0); MCV 81.7 fL (80.0-100.0); Monocytes # (A) 0.6 k/uL (0-1.0); Monocytes % (A) 5 %; Neutrophils # (A) 7.2 k/uL (1.3-7.7); Neutrophils % (A) 62 %; Platelet Count 321 k/uL (150-450); RBC 5.66 m/uL (4.30-5.90); WBC 11.6 k/uL (3.8-10.6)
[2024-06-24 03:41] LABS: ALT 18 U/L (4-49); AST 20 U/L (17-59); African American GFR (CKD) >90 (>60 ml/min/1.73 sqM); Albumin 4.5 g/dL (3.5-5.0); Alkaline Phosphatase 55 U/L (38-126); Anion Gap 9 mmol/L; Blood Urea Nitrogen 11 mg/dL (9-20); Carbon Dioxide 26 mmol/L (22-30); Chloride 105 mmol/L (98-107); Glucose 108 mg/dL (74-99); Lipase 238 U/L (23-300); Non-African American GFR(CKD) >90 (>60 ml/min/1.73 sqM); Sodium 140 mmol/L (137-145); Total Bilirubin 0.3 mg/dL (0.2-1.3)
[2024-06-24 03:46] LABS: INR 0.9 (<1.2); Partial Thromboplastin Time 23.2 sec (22.0-30.0); Prothrombin Time 10.5 sec (10.0-12.5)
[2024-06-24] MEDS: KETOROLAC 15 MG/ML 1 ML VIAL IVP STA (04:36)
--- NOTE | 2024-06-24 04:54 | XR ---
EXAMINATION TYPE: XR chest 2V DATE OF EXAM: 06/24/2024 COMPARISON: NONE HISTORY: Chest pain. TECHNIQUE: Frontal and lateral views of the chest are obtained. FINDINGS: There is no focal air space opacity, pleural effusion, or pneumothorax seen. The cardiac silhouette size is within normal limits. The osseous structures are intact. IMPRESSION: No acute cardiopulmonary process. [facility], , 06/24/2024 4:52 AM
[2024-06-24] MEDS: OLANZapine 10 MG VIAL IM STA (04:55)
[2024-06-24] MEDS: LORazepam 2 MG/ML INJ IM STA (04:55)
[2024-06-24 12:59] LABS: Amphetamine Screen,Urine Not Detected (NotDetected); Barbiturate Screen,Urine Not Detected (NotDetected); Benzodiazepines Screen,Urine Detected (NotDetected); Cocaine Screen,Urine Not Detected (NotDetected); Methadone Screen, Urine Not Detected (NotDetected); Opiate Screen,Urine Not Detected (NotDetected); Oxycodone Screen, Urine Not Detected (NotDetected); Phencyclidine Screen,Urine Not Detected (NotDetected); Tricyclic Antidepressant,Urine Not Detected (NotDetected); Urn Cannabinoid Scrn Not Detected (NotDetected)
[2024-06-24] MEDS ORDERED: MAGNESIUM HYDROXIDE 2,400 MG/30 ML CUP PO PRN (17:32)
[2024-06-24] MEDS ORDERED: ACETAMINOPHEN TAB 325 MG TAB PO PRN (17:32)
[2024-06-24] MEDS ORDERED: MAG HYDROX/AL HYDROX/SIMETH 355 ML BOTTLE PO PRN (17:32)
[2024-06-24] MEDS ORDERED: IBUPROFEN 600 MG TAB PO PRN (17:32)
[2024-06-24] MEDS ORDERED: HALOPERIDOL LACTATE 5 MG/ML 1 ML VIAL IM PRN (17:32)
[2024-06-24] MEDS ORDERED: LORazepam 2 MG/ML INJ IM PRN (17:32)
[2024-06-24 18:47] LABS: Appearance,Urine Clear (Clear); Bilirubin,Urine Negative (Negative); Blood,Urine Negative (Negative); Color,Urine Light Yellow; Glucose,Urine (UA) Negative (Negative); Ketones,Urine Negative (Negative); Leukocyte Esterase,Urine Negative (Negative); Nitrite,Urine Negative (Negative); PH, Urine 5.5 (5.0-8.0); Protein,Urine Negative (Negative); Specific Gravity,Urine 1.019 (1.001-1.035); Urobilinogen,Urine <2.0 mg/dL (<2.0)
[2024-06-25] MEDS: NICOTINE 14MG/24HR PATCH TRANSDERM SCH (09:00)
[2024-06-25 11:11] LABS: ALT 18 U/L (4-49); AST 22 U/L (17-59); Albumin 4.4 g/dL (3.5-5.0); Alkaline Phosphatase 62 U/L (38-126); Bilirubin, Delta 0.2 mg/dL (0.0-0.2); Bilirubin,Unconjugated 0.2 mg/dL (0.0-1.1); Total Bilirubin 0.4 mg/dL (0.2-1.3)
--- NOTE | 2024-06-25 14:12 | P.HP ---
Psychiatric H&P - . H&P Date: 06/25/24 History & Physical: Allergies Allergy/AdvReac Type Severity Reaction Status Date / Time No Known Allergies Allergy Verified 06/24/24 18:19 Vital Signs Temp 98.4 F 06/25/24 07:03 Pulse 80 06/25/24 07:03 Resp 15 06/25/24 07:03 BP 101/68 06/25/24 07:03 Pulse Ox 98 06/25/24 07:03 FiO2 Intake & Output 06/24/24 06/25/24 06/25/24 18:59 06:59 18:59 Weight 64.41 kg Laboratory Last Values WBC 11.6 k/uL (3.8-10.6) H 06/24/24 03:00 RBC 5.66 m/uL (4.30-5.90) 06/24/24 03:00 Hgb 15.7 gm/dL (13.0-17.5) 06/24/24 03:00 Hct 46.2 % (39.0-53.0) 06/24/24 03:00 MCV 81.7 fL (80.0-100.0) 06/24/24 03:00 MCH 27.7 pg (25.0-35.0) 06/24/24 03:00 MCHC 33.9 g/dL (31.0-37.0) 06/24/24 03:00 RDW 13.0 % (11.5-15.5) 06/24/24 03:00 Plt Count 321 k/uL (150-450) 06/24/24 03:00 MPV 8.0 06/24/24 03:00 Neutrophils % 62 % 06/24/24 03:00 Lymphocytes % 29 % 06/24/24 03:00 Monocytes % 5 % 06/24/24 03:00 Eosinophils % 1 % 06/24/24 03:00 Basophils % 0 % 06/24/24 03:00 Neutrophils # 7.2 k/uL (1.3-7.7) 06/24/24 03:00 Lymphocytes # 3.4 k/uL (1.0-4.8) 06/24/24 03:00 Monocytes # 0.6 k/uL (0-1.0) 06/24/24 03:00 Eosinophils # 0.1 k/uL (0-0.7) 06/24/24 03:00 Basophils # 0.1 k/uL (0-0.2) 06/24/24 03:00 PT 10.5 sec (10.0-12.5) 06/24/24 03:00 INR 0.9 (<1.2) 06/24/24 03:00 APTT 23.2 sec (22.0-30.0) 06/24/24 03:00 Sodium 140 mmol/L (137-145) 06/24/24 03:00 Potassium 4.0 mmol/L (3.5-5.1) 06/24/24 03:00 Chloride 105 mmol/L (98-107) 06/24/24 03:00 Carbon Dioxide 26 mmol/L (22-30) 06/24/24 03:00 Anion Gap 9 mmol/L 06/24/24 03:00 BUN 11 mg/dL (9-20) 06/24/24 03:00 Creatinine 0.93 mg/dL (0.66-1.25) 06/24/24 03:00 Est GFR (CKD-EPI)AfAm >90 (>60 ml/min/1.73 sqM) 06/24/24 03:00 Est GFR (CKD-EPI)NonAf >90 (>60 ml/min/1.73 sqM) 06/24/24 03:00 Glucose 108 mg/dL (74-99) H 06/24/24 03:00 Calcium 10.0 mg/dL (8.4-10.2) 06/24/24 03:00 Total Bilirubin 0.3 mg/dL (0.2-1.3) 06/24/24 03:00 Total Bilirubin 0.4 mg/dL (0.2-1.3) 06/24/24 03:00 Conjugated Bilirubin 0.0 mg/dL (0.0-0.3) 06/24/24 03:00 Unconjugated Bilirubin 0.2 mg/dL (0.0-1.1) 06/24/24 03:00 Delta Bilirubin 0.2 mg/dL (0.0-0.2) 06/24/24 03:00 AST 20 U/L (17-59) 06/24/24 03:00 AST 22 U/L (17-59) 06/24/24 03:00 ALT 18 U/L (4-49) 06/24/24 03:00 ALT 18 U/L (4-49) 06/24/24 03:00 Alkaline Phosphatase 55 U/L (38-126) 06/24/24 03:00 Alkaline Phosphatase 62 U/L (38-126) 06/24/24 03:00 Troponin I <0.012 ng/mL (0.000-0.034) 06/24/24 03:00 Total Protein 7.0 g/dL (6.3-8.2) 06/24/24 03:00 Total Protein 7.0 g/dL (6.3-8.2) 06/24/24 03:00 Albumin 4.4 g/dL (3.5-5.0) 06/24/24 03:00 Albumin 4.5 g/dL (3.5-5.0) 06/24/24 03:00 Lipase 238 U/L (23-300) 06/24/24 03:00 TSH 2.950 mIU/L (0.465-4.680) 06/24/24 03:00 Urine Color Light Yellow 06/24/24 12:15 Urine Appearance Clear (Clear) 06/24/24 12:15 Urine pH 5.5 (5.0-8.0) 06/24/24 12:15 Ur Specific [place] 1.019 (1.001-1.035) 06/24/24 12:15 Urine Protein Negative (Negative) 06/24/24 12:15 Urine Glucose (UA) Negative (Negative) 06/24/24 12:15 Urine Ketones Negative (Negative) 06/24/24 12:15 Urine Blood Negative (Negative) 06/24/24 12:15 Urine Nitrite Negative (Negative) 06/24/24 12:15 Urine Bilirubin Negative (Negative) 06/24/24 12:15 Urine Urobilinogen <2.0 mg/dL (<2.0) 06/24/24 12:15 Ur Leukocyte Esterase Negative (Negative) 06/24/24 12:15 Urine Opiates Screen Not Detected (NotDetected) 06/24/24 12:15 Ur Oxycodone Screen Not Detected (NotDetected) 06/24/24 12:15 Urine Methadone Screen Not Detected (NotDetected) 06/24/24 12:15 Ur Barbiturates Screen Not Detected (NotDetected) 06/24/24 12:15 U Tricyclic Antidepress Not Detected (NotDetected) 06/24/24 12:15 Ur Phencyclidine Scrn Not Detected (NotDetected) 06/24/24 12:15 Ur Amphetamines Screen Not Detected (NotDetected) 06/24/24 12:15 U Methamphetamines Scrn Not Detected (NotDetected) 06/24/24 12:15 U Benzodiazepines Scrn Detected (NotDetected) H 06/24/24 12:15 Urine Cocaine Screen Not Detected (NotDetected) 06/24/24 12:15 U Marijuana (THC) Screen Not Detected (NotDetected) 06/24/24 12:15 SARS-CoV-2 (PCR) Not Detected (Not Detectd) 06/24/24 13:40 06/25/24 14:07 IDENTIFYING DATA: Patient is a 33-year-old male, claims that he is homeless he has no kids he is single he is unemployed. HPI: Patient presented to the hospital yesterday, complaining of hallucinations, states that he had a history of schizophrenia. Currently patient has not been taking medications. Patient was agreeable to speak to appeals writer today in the office. He was somewhat guarded, concrete poor eye contact. He states that he was recently hospitalized in [place], then states that he made his way up to [place] because "this is where my insurance is from". He claims that he was hearing voices before coming into the hospital claimed that claiming that it was multiple voices having conversations, states that they are doing a bit better today. Claims that he is having trouble with housing and finances. States that he did have some paranoia prior to coming into the hospital. Urine drug screen is positive for benzodiazepines. Denies any visual hallucinations. Claims that his sleep and appetite are on and off. He states that he is only interested in getting help with housing and income and is not really interested in taking medications. Patient denies any suicidal or homicidal ideations intent or plan. Patient denies any flight of ideas racing thoughts and increased in goal directed behavior. Patient admits to using cigarettes only. PAST PSYCHIATRIC HISTORY: Patient has a history of schizophrenia. Claims that he has tried several different antipsychotics in the past, most recently on Abilify. States that he was last psychiatrically hospitalized in [place] s everal weeks ago. Patient denies any psychiatric outpatient follow-up. Patient denies any history of suicide attempts in the past. PMH: as per ER note ALLERGIES: as per EMR CHEMICAL DEPENDENCY HISTORY: as per HPI FAMILY PSYCHIATRIC/SUBSTANCE USE HISTORY: Denies SOCIAL HISTORY: Patient was born and raised in [place]. States that he not have any legal history. Claims that he completed high school and did an associates degree in school. Denies any kids claims he is single he is unemployed, he is homeless. MENTAL STATUS EXAM: General Appearance: Patient appears to be thin, shaved head, stated age is alert, somewhat evasive and guarded. Patient appears to have fair hygiene and grooming. Behavior: Patient is seated without any agitated behavior. Poor eye contact Speech: Patient's speech is fluent and nonpressured. [place] Mood/Affect: Patient reports their mood is "fine", affect is congruent and constricted. Suicidality/Homicidality: Patient denies having any homicidal ideation intent or plan. Denies any suicidal ideations intent or plan Perceptions: Patient denies any visual hallucinations and denies any auditory hallucinations Though content/process: There is no evidence of any delusional thought content and thought process is linear and goal-directed. [place], poverty of content, minimizing Memory and concentration: AOX3, grossly intact for the purposes of this session. Can spell "WORLD" backwards Judgment and insight: Poor STRENGTHS/WEAKNESSES: strength is that patient is resilient. Weakness is that patient has poor judgment. INTELLECT: Average IMPRESSIONS: Schizoaffective disorder Anxiety disorder unspecified Nicotine dependence Homelessness PLAN: -Patient is admitted under voluntary status to [facility]HU for stabilization of psychiatric symptoms and safety. Patient has not signed medication consent and is placed in patient's chart. -Medications : Gameroom Technician offered several different medication options however patient seem to be fairly uninterested. He mainly wanted to speak to the social services manager about "housing and finances". He claims that he will think about taking medications and may be interested in Seroquel and Zoloft. Start Seroquel 50 mg nightly and Zoloft 50 mg nightly. -Ativan and Haldol PRN for agitation/aggression -Patient was informed of the risks, benefits and side effects of the medication -Internal Medicine consult to perform medical evaluation and physical. -NRT -nicotine patch -SW on board for discharge planning. Encourage patient to participate in groups to work on coping skills.
[2024-06-25] MEDS: SERTRALINE 50 MG TAB PO SCH (21:19)
[2024-06-25] MEDS: QUEtiapine 50 MG TAB PO SCH (21:19)
[2024-06-25 23:13] LABS: Chol/HDL Ratio 2.82 Ratio; LDL Cholesterol,Calculated 77.2 mg/dL (0.0-131.0)
[2024-06-26] MEDS: LORazepam 1 MG TAB PO PRN (09:41)
--- NOTE | 2024-06-26 10:57 | P.PN ---
Progress Note - Text Progress Note Date: 06/26/24 Interval History: Patient was seen in his room and was directable and agreeable to speak with wr iter at the bedside. Patient stated he is doing good today. He was sitting on the edge of his bed, engaging with verse writer. He states that he is not taking the medications, because he does not know what they are for. Electrical And Instrument Mechanic explained to the patient what the medications are prescribed for. Electrical And Instrument Mechanic also spoke with patient about discharge. Patient verbalized understanding. Patient stated that he was starting to feel a little anxious this morning, requiring a PRN dose of ativan. Patient endorses good sleep and appetite . At this time patient denies any suicidal or homical ideations, intent or plan. Patient denies any auditory, visual hallucinations and denies any paranoia or delusions. Patient denies any side effects from the medications and has been compliant with meds. MENTAL STATUS EXAM: General Appearance: Patient appears to be thin, shaved head, stated age is alert, somewhat evasive and guarded. Patient appears to have fair hygiene and grooming. Behavior: Patient is seated without any agitated behavior. Speech: Patient's speech is fluent and nonpressured. [place], mildly improving Mood/Affect: Patient reports their mood is "good", affect is congruent and constricted. Suicidality/Homicidality: Patient denies having any homicidal ideation intent or plan. Denies any suicidal ideations intent or plan Perceptions: Patient denies any visual hallucinations and denies any auditory hallucinations Though content/process: There is no evidence of any delusional thought content and thought process is linear and goal-directed. Memory and concentration: AOX3, grossly intact for the purposes of this session. Judgment and insight: Poor, mildly improving IMPRESSIONS: Schizoaffective disorder Anxiety disorder unspecified Nicotine dependence Homelessness PLAN: -Patient is admitted under voluntary status to [facility] for stabilization of psychiatric symptoms and safety. Patient has not signed medication consent and is placed in patient's chart. -Medications : Seroquel 50 mg nightly and Zoloft 50 mg nightly. -Ativan and Haldol PRN for agitation/aggression -NRT - nicotine patch -SW on board for discharge planning. Encourage patient to participate in groups to work on coping skills. Likely discharge wednesday vs if patient is improving.
[2024-06-26] MEDS: haloperidoL 5 MG TAB PO PRN (14:27)
[2024-06-27 07:34] VITALS: BP 108/67; PULSE 66; RESP 16; TEMP 97.8
--- NOTE | 2024-06-27 11:45 | P.PN ---
Progress Note - Text Progress Note Date: 06/27/24 Interval History: Patient was seen in his room and was directable and agreeable to speak with wr iter in the office. Patient stated he is not doing well today. He states that he took the medication last night, and reacted bad to it. He states his vision went blurry, and he started shaking. He claims that he has side effects more than the average person when he takes medication. He states that the ativan that he took yesterday helped him. Tree Expert spoke with patient about lowering the doses of the medications, patient stated that he would prefer to not try medications. Patient remains concrete. However, he is stating that he is not anxious or depressed at this time. Patient endorses good sleep and appetite . At this time patient denies any suicidal or homicidal ideations, intent or plan. Patient denies any auditory, visual hallucinations and denies any paranoia or delusions. Patient denies any side effects from the medications and has been compliant with meds. MENTAL STATUS EXAM: General Appearance: Patient appears to be thin, shaved head, stated age is alert, somewhat evasive and guarded. Patient appears to have fair hygiene and grooming. Behavior: Patient is seated without any agitated behavior. Speech: Patient's speech is fluent and nonpressured. [place], mildly improving Mood/Affect: Patient reports their mood is "good", affect is congruent and constricted. Suicidality/Homicidality: Patient denies having any homicidal ideation intent or plan. Denies any suicidal ideations intent or plan Perceptions: Patient denies any visual hallucinations and denies any auditory hallucinations Though content/process: There is no evidence of any delusional thought content and thought process is linear and goal-directed. Memory and concentration: AOX3, grossly intact for the purposes of this session. Judgment and insight: Poor, mildly improving IMPRESSIONS: Schizoaffective disorder Anxiety disorder unspecified Nicotine dependence Homelessness PLAN: -Patient is admitted under voluntary status to [facility] for stabilization of psychiatric symptoms and safety. Patient has not signed medication consent and is placed in patient's chart. -Medications : Seroquel 50 mg nightly and decrease Zoloft 25 mg nightly. -Ativan and Haldol PRN for agitation/aggression -NRT - nicotine patch -SW on board for discharge planning. Encourage patient to participate in groups to work on coping skills. Likely discharge tomorrow if patient is improving. will give [facility] referral.
[2024-06-28] MEDS: SERTRALINE 25 MG TAB PO SCH (00:17)
--- NOTE | 2024-06-28 10:06 | P.DS ---
Providers Date of admission: 06/24/24 17:30 Expected date of discharge: 06/28/24 Attending physician: Keven Hamm MD Consults: 06/24/24 17:32 Consult Physician Routine Consulting Provider: Naveen Pearce Consult Reason/Comments: History and Physical Do you want consulting provider notified?: Yes Primary care physician: Naveen Pearce - Discharge Diagnosis(es) (1) Schizoaffective disorder, chronic condition Current Visit: Yes Status: Acute Priority: High (2) Anxiety disorder, unspecified Current Visit: Yes Status: Acute Priority: Medium (3) Nicotine dependence Current Visit: Yes Status: Acute Priority: Low (4) Homelessness Current Visit: Yes Status: Acute Priority: Low Hospital Course: Admission HPI: Admission note was completed by property underwriter "patient presented to the hospital yesterday, complaining of hallucinations, states that he had a history of schizophrenia. Currently patient has not been taking medications. Patient was agreeable to speak to property underwriter today in the office. He was somewhat guarded, concrete poor eye contact. He states that he was recently hospitalized in [place], then states that he made his way up to [place] because "this is where my insurance is from". He claims that he was hearing voices before coming into the hospital claimed that claiming that it was multiple voices having conversations, states that they are doing a bit better today. Claims that he is having trouble with housing and finances. States that he did have some paranoia prior to coming into the hospital. Urine drug screen is positive for benzodiazepines. Denies any visual hallucinations. Claims that his sleep and appetite are on and off. He states that he is only interested in getting help with housing and income and is not really interested in taking medications. Patient denies any suicidal or homicidal ideations intent or plan. Patient denies any flight of ideas racing thoughts and increased in goal directed behavior. Patient admits to using cigarettes only." Hospital course: Upon admission to the unit patient was directable and agreeable to commence treatment and signed adult voluntary form. Patient got along well with other patients on the unit and followed unit protocol. Patient was compliant with the medications and denied any side effects throughout hospital course. Patient was started on Seroquel and Zoloft however patient was instantly inconsistent with taking his medications. By the end of the hospitalization patient went back to Abilify and requested to be placed back on that as he did well previously on this, he was started on Abilify 5 mg daily for mood stabilization/psychosis, continued on with Zoloft 25 mg nightly for mood/anxiety. Patient spoke of his stressors and engaged in therapy both group and individual. Patient was also seen by medical team for history and physical exam. Throughout the course of the hospitalization patient gradually improved with regards to mood, anxiety, sleep and returned back to their baseline level of functioning. On the day of discharge patient denied any suicidal or homicidal ideations intent or plan denied any auditory or visual hallucinations. Patient endorsed wanting to live for his health and family. The patient denied any access to guns or weapons. Patient denied any paranoia and did not endorse any delusions. Patient does not have a significant history of substance abuse and was counseled on abstaining from all substances including alcohol and marijuana. Patient was also counseled on the medications and need for regular compliance and was encouraged to follow-up with their outpatient appointment for mental health and also for primary care. Patient will be discharged today to a halfway with [facility] follow-up. Mental status exam: General Appearance: Patient appears to be thin, shaved head, stated age is alert, pleasant, and cooperative. Patient is in no acute distress and has improved hygiene and grooming Behavior: Patient is calmly seated without any agitated behavior. Speech: Patient's speech is fluent and nonpressured. Mood/Affect: Patient reports their mood is "good", affect is congruent Suicidality/Homicidality: Patient denies having any suicidal or homicidal ideation intent or plan. Perceptions: Patient denies any auditory or visual hallucinations. Though content/process: There is no evidence of any delusional thought content and thought process is linear and goal-directed. Memory and concentration: AOX3, grossly intact for the purposes of this session. Can spell "WORLD" backwards correctly. Judgment and insight: Chronically poor, however has improved with guarded prognosis Impression: Schizoaffective disorder Anxiety disorder unspecified Nicotine dependence Homelessness Plan: -Continue with discharge today as patient has improved and stabilized psychiatrically and is not currently an imminent threat to himself and/or others. -Continue medications: Abilify 5 mg p.o. daily for mood stabilization/psychosis, Zoloft 25 mg nightly for mood/anxiety. -Patient was counseled on the need for medication compliance and appropriate follow-up at mental health and also primary care for medical issues. Patient verbalized understanding and agreed. -Social work to help coordinate patient's discharge today to halfway. Social work also to arrange for patients follow up appointments with [facility] for psychiatric care along with follow up with primary care provider. -Patient counseled on abstaining from recreational drugs and marijuana and alcohol. Was informed/educated on the adverse effects on their physical and mental health. Patient verbally agreed and understood. -Patient was instructed to return to the hospital or seek immediate medical care if their psychiatric or medical symptoms do worsen or reoccur. Allergies Allergy/AdvReac Type Severity Reaction Status Date / Time No Known Allergies Allergy Verified 06/24/24 18:19 Laboratory Results WBC 11.6 k/uL (3.8-10.6) H 06/24/24 03:00 RBC 5.66 m/uL (4.30-5.90) 06/24/24 03:00 Hgb 15.7 gm/dL (13.0-17.5) 06/24/24 03:00 Hct 46.2 % (39.0-53.0) 06/24/24 03:00 MCV 81.7 fL (80.0-100.0) 06/24/24 03:00 MCH 27.7 pg (25.0-35.0) 06/24/24 03:00 MCHC 33.9 g/dL (31.0-37.0) 06/24/24 03:00 RDW 13.0 % (11.5-15.5) 06/24/24 03:00 Plt Count 321 k/uL (150-450) 06/24/24 03:00 MPV 8.0 06/24/24 03:00 Neutrophils % 62 % 06/24/24 03:00 Lymphocytes % 29 % 06/24/24 03:00 Monocytes % 5 % 06/24/24 03:00 Eosinophils % 1 % 06/24/24 03:00 Basophils % 0 % 06/24/24 03:00 Neutrophils # 7.2 k/uL (1.3-7.7) 06/24/24 03:00 Lymphocytes # 3.4 k/uL (1.0-4.8) 06/24/24 03:00 Monocytes # 0.6 k/uL (0-1.0) 06/24/24 03:00 Eosinophils # 0.1 k/uL (0-0.7) 06/24/24 03:00 Basophils # 0.1 k/uL (0-0.2) 06/24/24 03:00 PT 10.5 sec (10.0-12.5) 06/24/24 03:00 INR 0.9 (<1.2) 06/24/24 03:00 APTT 23.2 sec (22.0-30.0) 06/24/24 03:00 Sodium 140 mmol/L (137-145) 06/24/24 03:00 Potassium 4.0 mmol/L (3.5-5.1) 06/24/24 03:00 Chloride 105 mmol/L (98-107) 06/24/24 03:00 Carbon Dioxide 26 mmol/L (22-30) 06/24/24 03:00 Anion Gap 9 mmol/L 06/24/24 03:00 BUN 11 mg/dL (9-20) 06/24/24 03:00 Creatinine 0.93 mg/dL (0.66-1.25) 06/24/24 03:00 Est GFR (CKD-EPI)AfAm >90 (>60 ml/min/1.73 sqM) 06/24/24 03:00 Est GFR (CKD-EPI)NonAf >90 (>60 ml/min/1.73 sqM) 06/24/24 03:00 Glucose 108 mg/dL (74-99) H 06/24/24 03:[address] Glu mg/dL 105 mg/dL 06/24/24 03:00 Hemoglobin A1c 5.3 % (<=6.0) 06/24/24 03:00 Calcium 10.0 mg/dL (8.4-10.2) 06/24/24 03:00 Total Bilirubin 0.3 mg/dL (0.2-1.3) 06/24/24 03:00 Total Bilirubin 0.4 mg/dL (0.2-1.3) 06/24/24 03:00 Conjugated Bilirubin 0.0 mg/dL (0.0-0.3) 06/24/24 03:00 Unconjugated Bilirubin 0.2 mg/dL (0.0-1.1) 06/24/24 03:00 Delta Bilirubin 0.2 mg/dL (0.0-0.2) 06/24/24 03:00 AST 20 U/L (17-59) 06/24/24 03:00 AST 22 U/L (17-59) 06/24/24 03:00 ALT 18 U/L (4-49) 06/24/24 03:00 ALT 18 U/L (4-49) 06/24/24 03:00 Alkaline Phosphatase 55 U/L (38-126) 06/24/24 03:00 Alkaline Phosphatase 62 U/L (38-126) 06/24/24 03:00 Troponin I <0.012 ng/mL (0.000-0.034) 06/24/24 03:00 Total Protein 7.0 g/dL (6.3-8.2) 06/24/24 03:00 Total Protein 7.0 g/dL (6.3-8.2) 06/24/24 03:00 Albumin 4.4 g/dL (3.5-5.0) 06/24/24 03:00 Albumin 4.5 g/dL (3.5-5.0) 06/24/24 03:00 Triglycerides 111.00 mg/dL (0.00-149.00) 06/24/24 03:00 Cholesterol 154.00 mg/dL (0.00-200.00) 06/24/24 03:00 LDL Cholesterol, Calc 77.2 mg/dL (0.0-131.0) 06/24/24 03:00 VLDL Cholesterol, Calc 22.20 mg/dL (5.00-40.00) 06/24/24 03:00 HDL Cholesterol 54.60 mg/dL (40.00-60.00) 06/24/24 03:00 Cholesterol/HDL Ratio 2.82 Ratio 06/24/24 03:00 Lipase 238 U/L (23-300) 06/24/24 03:00 TSH 2.950 mIU/L (0.465-4.680) 06/24/24 03:00 Urine Color Light Yellow 06/24/24 12:15 Urine Appearance Clear (Clear) 06/24/24 12:15 Urine pH 5.5 (5.0-8.0) 06/24/24 12:15 Ur Specific [place] 1.019 (1.001-1.035) 06/24/24 12:15 Urine Protein Negative (Negative) 06/24/24 12:15 Urine Glucose (UA) Negative (Negative) 06/24/24 12:15 Urine Ketones Negative (Negative) 06/24/24 12:15 Urine Blood Negative (Negative) 06/24/24 12:15 Urine Nitrite Negative (Negative) 06/24/24 12:15 Urine Bilirubin Negative (Negative) 06/24/24 12:15 Urine Urobilinogen <2.0 mg/dL (<2.0) 06/24/24 12:15 Ur Leukocyte Esterase Negative (Negative) 06/24/24 12:15 Urine Opiates Screen Not Detected (NotDetected) 06/24/24 12:15 Ur Oxycodone Screen Not Detected (NotDetected) 06/24/24 12:15 Urine Methadone Screen Not Detected (NotDetected) 06/24/24 12:15 Ur Barbiturates Screen Not Detected (NotDetected) 06/24/24 12:15 U Tricyclic Antidepress Not Detected (NotDetected) 06/24/24 12:15 Ur Phencyclidine Scrn Not Detected (NotDetected) 06/24/24 12:15 Ur Amphetamines Screen Not Detected (NotDetected) 06/24/24 12:15 U Methamphetamines Scrn Not Detected (NotDetected) 06/24/24 12:15 U Benzodiazepines Scrn Detected (NotDetected) H 06/24/24 12:15 Urine Cocaine Screen Not Detected (NotDetected) 06/24/24 12:15 U Marijuana (THC) Screen Not Detected (NotDetected) 06/24/24 12:15 SARS-CoV-2 (PCR) Not Detected (Not Detectd) 06/24/24 13:40 Vital Signs Temp 97.8 F 06/27/24 06:35 Pulse 66 06/27/24 06:35 Resp 16 06/27/24 06:35 BP 108/67 06/27/24 06:35 Pulse Ox 98 06/27/24 06:35 FiO2 Patient Condition at Discharge: Stable Plan - Discharge Summary Discharge Rx Participant: No New Discharge Prescriptions: New ARIPiprazole [Abilify] 5 mg PO DAILY 14 Days #14 tab Nicotine 14Mg/24Hr Patch [Habitrol] 1 patch TRANSDERM DAILY 14 Days #14 patch Sertraline [Zoloft] 25 mg PO HS 14 Days #14 tab Discharge Medication List ARIPiprazole [Abilify] 5 mg PO DAILY 14 Days #14 tab 06/28/24 [Rx] Nicotine 14Mg/24Hr Patch [Habitrol] 1 patch TRANSDERM DAILY 14 Days #14 patch 06/28/24 [Rx] Sertraline [Zoloft] 25 mg PO HS 14 Days #14 tab 06/28/24 [Rx] Follow up Appointment(s)/Referral(s): [facility] [Outside] - 06/29/24 11:00 am (with intake) Naveen Pearce MD [Primary Care Provider] - 1-2 days Patient Instructions/Handouts: How to Stop Smoking (DC), Schizoaffective Disorder (DC), Anxiety (GEN) Activity/Diet/Wound Care/Special Instructions: [facility] Discharge Info Avoid the use of street drugs and alcohol. Take all medications as prescribed. When you are in need of refills on your medications, please contact your outpatient medical provider and/or outpatient psychiatrist. Please go to your scheduled outpatient appointments for aftercare treatment. If symptoms return or become worse, call the crisis line at or and/or visit the nearest emergency room for assistance. National Suicide and Crisis Lifeline - call or text 139. Discharge Disposition: OTHER INSTITUTION NOT DEFINED
[2024-06-28] MEDS: ARIPiprazole 5 MG TAB PO SCH (10:09)
--- NOTE | 2024-06-29 14:49 | HP ---
HISTORY AND PHYSICAL CHIEF COMPLAINT: Major depression. HISTORY OF PRESENT ILLNESS: This is a 33-year-old white male, who presented to the emergency room with depression and suicidal thoughts. He has otherwise been healthy. He denies any headaches, chest pain, shortness of breath, abdominal pain, etc. Past medical history, family history, and personal and social histories discovered that he has no allergies. He has not been on any medications. He has had numerous mental health admissions. He is a nonsmoker. PHYSICAL EXAMINATION: VITAL SIGNS: Normal. HEAD, EARS, EYES, NOSE, MOUTH, AND THROAT: Normal. He has a small abrasion on the top of the scalp on the right. Eyes were normal. Ears were clear. CHEST: Clear. CARDIAC: Normal. ABDOMEN: Soft and nontender. IMPRESSION: Major depression. RECOMMENDATIONS: None. MMODL / IJN: [id number] /
== END 2024-06-28 13:55 | disposition home or self-care (01) | DRG 756 ==
LOC: EC 01:15 → 3MHU 17:30
PROVIDERS: ADMIT Psychiatry & Neurology Psychiatry; ATTEND Psychiatry & Neurology Psychiatry
DX: R45.851 Suicidal ideations (principal); F25.8 Other schizoaffective disorders; F17.210 Nicotine dependence, cigarettes, uncomplicated; F32.9 Major depressive disorder, single episode, unspecified; F41.9 Anxiety disorder, unspecified; Z79.899 Other long term (current) drug therapy; Z80.3 Family history of malignant neoplasm of breast; Z82.49 Family history of ischemic heart disease and other diseases of the circulatory system; Z59.00 Homelessness unspecified; Z71.6 Tobacco abuse counseling
CPT/HCPCS: 36415; 71046; 80053; 80061; 80076; 80306; 81003; 82075; 83036; 83690; 84443; 84484; 85025; 85610; 85730; 87635; 93005; 96372; 99285